=== PATIENT | female | born 1990 | race Two or more races ===

== ENCOUNTER 2020-06-22 08:23 | Emergency (ER) | payer OTHER ==
[~2020-06-22] VITALS: Ht 157.5 cm; Wt 49.4 kg
--- NOTE | 2020-06-22 08:36 | NUR ---
Pt to room from triage with steady gait and balance. CATHLEENN.
[2020-06-22 08:48] VITALS: BP 140/97
--- NOTE | 2020-06-22 09:00 | NUR ---
MALINI-Erin IS AT THE BEDSIDE FOR ASSESSMENT
--- NOTE | 2020-06-22 09:14 | NUR ---
ERP CONSULT WITH ENT VIA PHONE
--- NOTE | 2020-06-22 09:30 | NUR ---
Patient given discharge instructions and they have confirmed that they understand the instructions. Patient ambulatory with steady gait. Pt left with d/c paperwork, referral, and all personal belongings.
== END 2020-06-22 09:32 | disposition home or self-care (01) ==
LOC: ED 09:15
DX: T17.228A Food in pharynx causing other injury, initial encounter (principal); R09.89 Other specified symptoms and signs involving the circulatory and respiratory systems; F17.210 Nicotine dependence, cigarettes, uncomplicated; X58.XXXA Exposure to other specified factors, initial encounter; Y93.89 Activity, other specified; Y92.098 Other place in other non-institutional residence as the place of occurrence of the external cause; Y99.8 Other external cause status
CPT/HCPCS: 99281